=== PATIENT | male | born 1990 | race African-American/Black ===

== ENCOUNTER 2018-09-27 14:31 | Emergency (ER) | payer OTHER ==
[2018-09-27 15:24] LABS: BILIRUBIN,URINE NEGATIVE (NEGATIVE); GLUCOSE, URINE (UA) NEGATIVE (NEGATIVE); KETONES,URINE (UA) NEGATIVE (NEGATIVE); LEUKOCYTE ESTERASE, URINE NEGATIVE (NEGATIVE); NITRITE,URINE NEGATIVE (NEGATIVE); OCCULT BLOOD,URINE NEGATIVE (NEGATIVE); PROTEIN,URINE NEGATIVE (NEGATIVE); UROBILINOGEN,URINE 0.2 (NORMAL) E.U./dL (NORMAL)
[2018-09-27 15:26] LABS: CLARITY,URINE CLEAR (CLEAR)
--- NOTE | 2018-09-27 16:34 | ED Physician Documentation ---
PD HPI MALE - Stated complaint Stated Complaint: MALE - Chief complaint Chief Complaint: UTI - History obtained from History obtained from: Patient - History of Present Illness Timing - onset: Yesterday (Some urinary discharge and burning at the tip. He is undergoing a divorce and he is concerned his might have given him something because she is having an affair.) Review of Systems Constitutional: reports: Reviewed and negative Ears: reports: Reviewed and negative Cardiac: reports: Reviewed and negative Respiratory: reports: Reviewed and negative PD PAST MEDICAL HISTORY - Past Medical History Past Medical History: No Cardiovascular: None Respiratory: None Neuro: None Endocrine/Autoimmune: None GI: None : None HEENT: None Psych: None Musculoskeletal: None Derm: None - Past Surgical History Past Surgical History: Yes - Present Medications Home Medications: Ambulatory Orders Medication Instructions Recorded Confirmed No Known Home Medications 09/27/18 09/27/18 - Allergies Allergies/Adverse Reactions: Allergies Allergy/AdvReac Type Severity Reaction Status Date / Time No Known Drug Allergies Allergy Verified 09/27/18 15:00 - Social History Does the pt smoke?: Yes Smoking Status: Current some day smoker Does the pt drink ETOH?: Yes ETOH Use: Liquor Does the pt have substance abuse?: No - Immunizations Immunizations are current?: Yes - POLST Patient has POLST: No PD ED PE NORMAL - Vitals Vital signs reviewed: Yes - General General: Alert and oriented X 3, No acute distress - Neuro Neuro: Alert and oriented X 3, Normal speech - Psych Psych: Normal mood, Normal affect Results - Vitals Vitals: Vital Signs - 24 hr 09/27/18 14:59 Temperature 37 C Heart Rate 76 Respiratory 16 Rate Blood Pressure 109/75 O2 Saturation 98 Oxygen O2 Source Room air - Labs Labs: Laboratory Tests 09/27/18 15:10 Urine Color YELLOW Urine Clarity CLEAR Urine pH 6.0 Ur Specific [place] 1.025 Urine Protein NEGATIVE Urine Glucose (UA) NEGATIVE Urine Ketones NEGATIVE Urine Occult Blood NEGATIVE Urine Nitrite NEGATIVE Urine Bilirubin NEGATIVE Urine Urobilinogen 0.2 (NORMAL) Ur Leukocyte Esterase NEGATIVE Ur Microscopic Review NOT INDICATED Urine Culture Comments NOT INDICATED Departure - Departure Disposition: 01 Home, Self Care Clinical Impression: Urethritis Condition: Good Record reviewed to determine appropriate education?: Yes Instructions: ED STD Male Treated
[2018-09-27] MEDS: AZITHROMYCIN 250 MG TABLET PO STA (16:59)
[2018-09-27] MEDS: LIDOCAINE 1% 2 ML VIAL SUBQ ONE (17:00)
[2018-09-27] MEDS: cefTRIAXone 250 MG VIAL IM ONE (17:00)
[2018-09-27 17:05] VITALS: BP 135/69
== END 2018-09-27 17:11 | disposition home or self-care (01) ==
LOC: ED 14:31
DX: N34.2 Other urethritis (principal)
CPT/HCPCS: 81003; 87491; 87591; 96372; 99283; A9270; 81001; 87086